=== PATIENT | female | born 1985 | race Caucasian/White ===

== ENCOUNTER 2019-06-12 17:55 | Inpatient (IN) | payer MEDICAID, OTHER ==
[~2019-06-12] VITALS: Ht 175.3 cm; Wt 111.1 kg
[2019-06-12] MEDS ORDERED: OXYTOCIN 20 UNITS in LACTATED RINGERS 1,000 ML IV SCH (18:05)
[2019-06-12] MEDS ORDERED: BETAMETH ACET/BETAMETH NA PH 30 MG/5 ML VIAL IM ONE ×2 (18:05→19:09)
[2019-06-12 18:49] LABS: BASOPHILS % (AUTO) 0.2 % (0.0-2.0); EOSINOPHILS % (AUTO) 0.6 % (0.0-4.0); HEMATOCRIT 34.4 % (36-48); HEMOGLOBIN 11.5 g/dL (12.0-16.0); LYMPHOCYTES # (AUTO) 1.4 K/uL (2.5-16.5); LYMPHOCYTES % (AUTO) 20.3 % (20.5-51.1); MEAN CORPUSCULAR HEMOGLOBIN 29 pg (27-31); MEAN CORPUSCULAR HGB CONC 33 g/dL (33-37); MEAN CORPUSCULAR VOLUME 85.9 fL (80-94); MONOCYTES # (AUTO) 0.4 K/uL (0.8-1.0); MONOCYTES % (AUTO) 5.8 % (1.7-9.3); NEUTROPHILS # (AUTO) 5.1 K/uL (1.8-7.7); NEUTROPHILS % (AUTO) 73.1 % (42.2-75.2); PLATELET COUNT (AUTO) 284 K/uL (140-450); RED CELL DISTRIBUTION WIDTH 14.5 % (11.6-13.7)
[2019-06-12 18:55] LABS: APPEARANCE,URINE CLEAR (CLEAR); BILIRUBIN,URINE NEGATIVE (NEGATIVE); BLOOD, URINE NEGATIVE (NEGATIVE); COLOR,URINE YELLOW (YELLOW); LEUKOCYTE ESTERASE ,URINE NEGATIVE (NEGATIVE); NITRITE, URINE NEGATIVE (NEGATIVE); UGLUCOSE NEGATIVE (NEGATIVE)
[2019-06-12 19:02] VITALS: BP 128/80
[2019-06-12] MEDS ORDERED: HUM SUBQ (19:06)
[2019-06-12] MEDS ORDERED: PREN-380 PO (19:06)
[2019-06-12] MEDS ORDERED: AMPICILLIN 2,000 MG VIAL ONE ×2 (19:23→23:38)
[2019-06-12] MEDS: AMPICILLIN 2,000 MG in NACL 0.9% 100 ML IV SCH ×2 (19:31→23:58)
[2019-06-12] MEDS: LACTATED RINGERS 1,000 ML IV SCH (19:34)
[2019-06-12 19:38] LABS: ANION GAP 17.9 (8-16); CARBON DIOXIDE 19.8 mmol/L (21-32); CREATININE 0.6 mg/dL (0.6-1.3); POTASSIUM 3.7 mmol/L (3.5-5.1); TOTAL BILIRUBIN 0.3 mg/dL (0.0-1.0)
[2019-06-12] MEDS ORDERED: INSULIN NPH HUMAN ISOPHANE 100 UNIT/ML VIAL SUBQ SCH (21:00)
[2019-06-13] MEDS ORDERED: AMPICILLIN 2,000 MG VIAL ONE ×3 (03:58→12:30)
[2019-06-13] MEDS: AMPICILLIN 2,000 MG in NACL 0.9% 100 ML IV SCH ×3 (04:03→12:40)
[2019-06-13] MEDS: LACTATED RINGERS 1,000 ML IV SCH ×2 (04:05→14:42)
[2019-06-13] MEDS ORDERED: BLOOD GLUCOSE MONITORING 1 DEV DEV FS SCH (09:00)
[2019-06-13] MEDS ORDERED: MIDAZOLAM 2 MG/2 ML VIAL ONE (15:50)
[2019-06-13] MEDS ORDERED: MORPHINE PRES FREE 10 MG/10 ML AMP IV ONE (15:50)
[2019-06-13] MEDS ORDERED: ceFAZolin 1,000 MG VIAL ONE (15:50)
[2019-06-13] MEDS ORDERED: BUPIVACAINE-MPF 0.75% 10 ML VIAL INJ ONE (15:50)
--- NOTE | 2019-06-13 16:41 | NUR ---
NBM DR VIVEROS PRESENT APGARS 8 AND 9
[2019-06-13] MEDS ORDERED: OXYTOCIN 20 UNITS in LACTATED RINGERS 1,000 ML IV SCH (16:43)
[2019-06-13] MEDS ORDERED: NALOXONE 0.4 MG/ML VIAL IVP PRN ×3 (16:45)
[2019-06-13] MEDS ORDERED: NALBUPHINE 10 MG/ML AMP IVP PRN (16:45)
[2019-06-13] MEDS ORDERED: ONDANSETRON 4 MG/2 ML VIAL IVP PRN ×2 (16:45)
[2019-06-13] MEDS ORDERED: MEPERIDINE 25 MG/ML SYR IVP PRN (16:45)
[2019-06-13] MEDS ORDERED: diphenhydrAMINE 50 MG/ML VIAL IVP PRN ×2 (16:45)
[2019-06-13] MEDS ORDERED: HYDROmorphone 1 MG/ML AMP IVP PRN (16:45)
[2019-06-13] MEDS ORDERED: OXYTOCIN 20 UNITS/LR PREMIX 1,000 ML IV ONE ×2 (16:50→21:24)
[2019-06-13] MEDS ORDERED: TEMAZEPAM 15 MG CAP PO PRN (17:05)
[2019-06-13] MEDS ORDERED: METHYLERGONOVINE 0.2 MG/ML AMP IM PRN (17:05)
[2019-06-13] MEDS ORDERED: MEASLES, MUMPS, AND RUBELLA 1 VIAL SQVAC PRN (17:05)
[2019-06-13] MEDS: KETOROLAC 30 MG/ML VIAL IM/IVP SCH (20:07)
[2019-06-13] MEDS: DOCUSATE SOD/SENNA 50/8.6 MG 1 TAB PO SCH (20:09)
[2019-06-13] MEDS: SENNA 8.6 MG TAB PO SCH (20:09)
[2019-06-13] MEDS: OXYTOCIN 10 UNITS in LACTATED RINGERS 1,000 ML IV SCH (21:33)
[2019-06-14] MEDS: KETOROLAC 30 MG/ML VIAL IM/IVP SCH ×2 (01:57→08:06)
[2019-06-14] MEDS ORDERED: OXYTOCIN 20 UNITS/LR PREMIX 1,000 ML IV ONE (04:36)
[2019-06-14] MEDS: OXYTOCIN 10 UNITS in LACTATED RINGERS 1,000 ML IV SCH ×2 (04:52→14:00)
[2019-06-14 05:57] LABS: BASOPHILS % (AUTO) 0.1 % (0.0-2.0); EOSINOPHILS % (AUTO) 0.1 % (0.0-4.0); HEMOGLOBIN 10.1 g/dL (12.0-16.0); LYMPHOCYTES # (AUTO) 1.3 K/uL (2.5-16.5); LYMPHOCYTES % (AUTO) 17.9 % (20.5-51.1); MEAN CORPUSCULAR HEMOGLOBIN 29 pg (27-31); MEAN CORPUSCULAR HGB CONC 34 g/dL (33-37); MEAN CORPUSCULAR VOLUME 86.2 fL (80-94); MONOCYTES # (AUTO) 0.4 K/uL (0.8-1.0); NEUTROPHILS # (AUTO) 5.3 K/uL (1.8-7.7); NEUTROPHILS % (AUTO) 75.9 % (42.2-75.2); PLATELET COUNT (AUTO) 221 K/uL (140-450); RED BLOOD CELL COUNT(AUTO) 3.47 MIL/uL (4.20-5.40); RED CELL DISTRIBUTION WIDTH 14.2 % (11.6-13.7)
[2019-06-14] MEDS ORDERED: BLOOD GLUCOSE MONITORING 1 DEV DEV FS SCH ×2 (06:00→09:00)
--- NOTE | 2019-06-14 07:33 | NUR ---
PATIENT HAS BEEN SCREENED AND CATEGORIZED LOW NUTRITION RISK. PATIENT WILL BE SEEN WITHIN 7 DAYS OF ADMISSION. 06/19/[address]
[2019-06-14] MEDS: IBUPROFEN 800 MG TAB PO PRN (13:55)
[2019-06-14] MEDS: oxyCODONE/APAP 5/325 MG 1 TAB TAB PO PRN ×2 (16:49→20:43)
[2019-06-14] MEDS: DOCUSATE SOD/SENNA 50/8.6 MG 1 TAB PO SCH (20:44)
[2019-06-14] MEDS: SENNA 8.6 MG TAB PO SCH (20:46)
[2019-06-15] MEDS: oxyCODONE/APAP 5/325 MG 1 TAB TAB PO PRN ×3 (01:10→15:21)
[2019-06-15] MEDS: HYDROcodone/APAP 5/325 MG 1 TAB TAB PO PRN ×2 (04:22→23:04)
[2019-06-15] MEDS: SIMETHICONE 80 MG TAB.CHEW PO PRN ×2 (08:00→13:23)
[2019-06-15] MEDS: IBUPROFEN 800 MG TAB PO PRN ×2 (11:05→18:25)
[2019-06-15] MEDS: SENNA 8.6 MG TAB PO SCH (21:10)
[2019-06-15] MEDS: DOCUSATE SOD/SENNA 50/8.6 MG 1 TAB PO SCH (21:11)
[2019-06-16] MEDS ORDERED: INFLUENZA VACCINE QUAD 0.5 ML SYR IMVAC PRN (01:55)
[2019-06-16] MEDS: IBUPROFEN 800 MG TAB PO PRN ×2 (02:09→12:33)
[2019-06-16] MEDS ORDERED: CAMERA MC ONE (05:03)
[2019-06-16] MEDS: oxyCODONE/APAP 5/325 MG 1 TAB TAB PO PRN ×2 (08:13→16:59)
== END 2019-06-16 19:30 | disposition home or self-care (01) | DRG 540 ==
LOC: MFCC 17:55
PROVIDERS: ADMIT Obstetrics & Gynecology; ATTEND Obstetrics & Gynecology
PROC: 3E0134Z Introduction of Serum, Toxoid and Vaccine into Subcutaneous Tissue, Percutaneous Approach (ICD-10-PCS; 2019-06-13)
PROC: 10D00Z1 Extraction of Products of Conception, Low, Open Approach (ICD-10-PCS; principal; 2019-06-13 16:00)
PROC: 3E02340 Introduction of Influenza Vaccine into Muscle, Percutaneous Approach (ICD-10-PCS; 2019-06-16)
PROC: 3E0234Z Introduction of Serum, Toxoid and Vaccine into Muscle, Percutaneous Approach (ICD-10-PCS; 2019-06-16)
DX: O42.913 Preterm premature rupture of membranes, unspecified as to length of time between rupture and onset of labor, third trimester (principal); O24.429 Gestational diabetes mellitus in childbirth, unspecified control; Z37.0 Single live birth; Z3A.35 35 weeks gestation of pregnancy; Z23 Encounter for immunization
CPT/HCPCS: 36415; 76815; 80053; 81003; 82948; 85025; 86592; 86762; 86886; 86900; 86901; 87340; 87653-90; 90715; J0290; J0690; J0702; J1200; J1885; J2250; J2270; J2405; J2590; J3490; J7060; J7120; Q0092